=== PATIENT | female | born 1925 | race Caucasian/White ===

== ENCOUNTER 2016-12-26 09:00 | Outpatient (CLI) | payer MEDICARE ==
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
== END 2016-12-26 09:01 | disposition home or self-care (01) ==
LOC: PC 09:00
PROVIDERS: ATTEND Nurse Practitioner
DX: Z51.5 Encounter for palliative care (principal); F01.51 Vascular dementia, unspecified severity, with behavioral disturbance; R62.7 Adult failure to thrive; R63.4 Abnormal weight loss; I10 Essential (primary) hypertension; G62.9 Polyneuropathy, unspecified; I50.9 Heart failure, unspecified; I25.10 Atherosclerotic heart disease of native coronary artery without angina pectoris; R53.1 Weakness; K59.00 Constipation, unspecified; Z79.82 Long term (current) use of aspirin; R15.9 Full incontinence of feces; R32 Unspecified urinary incontinence; R63.0 Anorexia; Z66 Do not resuscitate

== ENCOUNTER 2017-03-11 14:02 | Outpatient (CLI) | payer MEDICARE ==
--- NOTE | 2017-03-11 15:35 | CONSULTATION NOTE ---
Palliative Care Follow Up - Referral Referring Provider: Rin Matias PA-C Time of Visit: 03/12/2017 10:25 Referral setting: Assisted living (Patient is seen in her home setting, which is [facility] dementia unit, due to taxing and considerable effort required to leave the facility secondary to advanced dementia, significant lower extremity weakness and inability to bear weight. It is also necessary to have access to the facility documents.) - Information Sources Records reviewed: RN notes reviewed, Previous records reviewed History/Review of Systems obtained from: Family, Nursing Exam limitations: Clinical condition (Advanced dementia, extremely hard of hearing) - History of Present Illness Update Brief HPI Update: This is a frail 89-year-old female with advanced vascular dementia and a history of CHF, CAD, PAD, HTN, HLD, and nondiabetic peripheral neuropathy. She recently was discharged from hospice February 25 after she started improving with an increase in appetite, weight, and responsiveness. She can eat 80-100% of her meals. She does sit at the dining room table, however she requires staff help with feeding. She had started to lose weight earlier in February, however that has since they restarted one can of Ensure at each meal that turned around and she has been gaining weight again. Her current weight today is 120.2 pounds. She is still is quite frail, requiring 2 persons to assist for all transfers. She is non-ambulatory, and is wheelchair-bound. During today's visit and she was wrapped tightly in blankets to stay warm, was reclining in the common room, and though she had her eyes open at various times during the visit, she mostly kept her eyes shut. Her son reports she is significantly hard of hearing, and he needs to speak directly into her ear for her to understand, which might be part of her unresponsiveness. He states that she does not have a hearing aid, and he will think about possibly getting her fitted for some. He reports she does not recognize him, but is able to respond to certain statements, seems to a reacts to being called mom, and even commented about the "cute babies" when he was telling her a story about a family gathering over the holidays. Nursing reports that she is fairly stable, with no behavioral issues or adherence issues, and she is mostly cooperative though she doesn't like pericare. Social History - Living Situation Living arrangement: Assisted living ([facility]) Living Situation: With caregiver(s) Support System: Her son/DPOA, Ehsan Hernadez, lives locally in [place]. Her other three adult children all live in [facility]. She spent most of her life in [place] but is originally from [place]. Medications/Allergies - Medications Home Medications: Ambulatory Orders Medication Instructions Recorded Confirmed Bacitracin 1 gm OP PRN 12/26/16 Ensure Vanilla 1 ea PO TID 12/26/16 03/11/17 Furosemide 20 mg PO DAILY 12/26/16 03/11/17 Loperamide HCl [Loperamide] 4 mg PO DAILY PRN MDD 8 tabs 12/26/16 03/11/17 Magnesium Hydroxide [Milk of 30 ml PO DAILY PRN 12/26/16 03/11/17 Magnesia] Nitroglycerin [Nitrostat] 0.4 mg SL Q5MIN PRN MDD up to 3 12/26/16 03/11/17 doses Nystatin 1 ea TOP DAILY PRN 12/26/16 03/11/17 Potassium Chloride [Micro-K] 20 meq PO DAILY 12/26/16 03/11/17 Senna Plus, With Docusate 17.2 - 100 mg PO QPM 12/26/16 03/11/17 Acetaminophen 650 mg PO Q6H PRN MDD 3000mg 03/11/17 03/11/17 maximum Acetaminophen 650 mg RC Q6H PRN MDD 3000mg 03/11/17 03/11/17 maximum Bisacodyl Supp [Dulcolax Supp] 10 mg IL DAILY PRN 03/11/17 03/11/17 Hyoscyamine [Levsin] 0.125 mg SL Q4H PRN 03/11/17 03/11/17 LORazepam [Ativan] 0.5 mg PO Q6H PRN 03/11/17 03/11/17 Morphine Sulfate [Morphine Sulf 0.25 ml PO Q4H PRN 03/11/17 03/11/17 Oral (Roxanol)] Na Phos,M-B/Na Phos,Di-Ba [Enema] 133 ml IL DAILY PRN 03/11/17 03/11/17 Sennosides/Docusate Sodium 1 ea PO BID PRN 03/11/17 03/11/17 [Senna-Docusate Sodium Tablet] - Allergies Allergies/Adverse Reactions: Allergies Allergy/AdvReac Type Severity Reaction Status Date / Time acetaminophen AdvReac Unknown Unknown Unverified 12/26/16 21:33 [From Darvocet-N] codeine AdvReac Unknown Unknown Unverified 12/26/16 21:33 propoxyphene AdvReac Unknown Unknown Unverified 12/26/16 21:33 [From Darvocet-N] sulfamethoxazole AdvReac Unknown Unknown Unverified 12/26/16 21:33 [From Bactrim] trimethoprim [From Bactrim] AdvReac Unknown Unknown Unverified 12/26/16 21:33 Review of Systems - Constitutional Constitutional: reports: Fatigue, Weakness, Weight loss (Weight loss, but is reboundin.2 lbs 03/11/2017. 116 lbs 03/04/17. 113.8 lbs 02/25/17. 120 lbs 02/18/17. 123 lbs 02/11/17.) - Ears, Nose & Throat Ears, Nose & Throat: reports: Hearing loss (significant). denies: Hearing aids - Cardiovascular Cardiovascular: denies: Edema - Respiratory Respiratory: denies: SOB at rest - Gastrointestinal Gastrointestinal: reports: Good appetite. denies: Constipation, Diarrhea, Change in bowel habits, Poor appetite - Genitourinary Genitourinary: reports: Incontinence - Neurological Neurological: reports: General weakness, Memory problems - Psychiatric Psychiatric: denies: Behavior disturbances - All Other Systems All Other Systems: reports: Other (Unable to obtain ROS from patient due to advanced dementia and significant deafness) Physical Exam - Vital Signs Temperature: 96.8 F Pulse Rate: 80 O2 Saturation: 95 Blood Pressure: 110/70 - Physical Exam General Appearance: positive: No acute distress, Other (Has eyes opened occasionally but closed much of the visit. She wakes up when her son speaks to her, but he has to shout right in her ear.) Eyes Bilateral: positive: EOMI, Conjunctivae nml, No scleral icterus, Other ( Minimal exudate L eye) ENT: positive: No signs of dehydration Neck: positive: No JVD, Trachea midline Cardiovascular: positive: Regular rate & rhythm, No murmur, No gallop Respiratory: positive: Diminished throughout, Other (minimal crackles/creaks on inspiration) Skin: positive: No symptoms, Dryness Extremities: positive: No pedal edema Neurologic/Psychiatric: positive: Sensation nml, Disoriented to person, Disoriented to place, Disoriented to time, Unintelligible speech (minimal verbalization), Flat affect Palliative Care - POLST POLST Status: DNR, Comfort Measures Pain: No pain, Comment (No complaints or indications of pain) Tiredness/Fatigue: Mild (1-3) (Kept her eyes closed during most of the visit) Drowsiness/Sedation: Mild (1-3) Nausea: None Anorexia: None (Has an appetite, was hungry during the visit and asked for food) Performance Status: Functional status: Requires 2 person assist with all transfers. Wheelchair for ambulations. Requires feeding by staff. Incontinent of bowel and bladder. Minimal verbalizations. Cooperative mostly. Must closely monitor appetite and intake, she loses weight easily. Now she is back drinking 1 can Ensure with each meal and her weight is rebounding. - Palliative Care Discussion: Son Rizwan lives nearby and visits her regularly. She came off Hospice in February because she started eating and gaining weight. Rizwan understands that she is still frail, but is just happy to have her still here. He is in agreement to have Palliative Care monitor her status. The goal of care continues to be comfort care and maximizing quality of life. When the patient meets criteria again for Hospice he is agreeable to transition her back to Hospice when appropriate. Impression and Recommendations - Palliative Care Impression: This is a frail 89-year-old woman who has been recently discharged from hospice after having regained her appetite, increased her weight and her responsiveness. The family agrees to having palliative care oversight to monitor her status and progress, and eventually transition her back to hospice when appropriate. Recommendations/Counseling Done: #1 vascular dementia: Stable, continue supportive care. #2 Constipation: Stable on senna daily and PRN. #3 Weight loss: Improved after restarting Ensure at each meal, current weight is 120.2 pounds. Continue to monitor. Continue staff assisting with eating at each meal. #4 neuropathy: Stable, not currently on medication. Gabapentin had been previously discontinued for having a no comfort benefits. #5 advanced care planning: POLST is DO NOT RESUSCITATE and comfort care, palliative care will continue to oversee and monitor for transition back to hospice when appropriate. Time Spent: 25 minutes were spent with more than 50% of the time spent on counseling, education, and coordination of care, including medication reconciliation.
== END 2017-03-11 14:03 | disposition home or self-care (01) ==
LOC: PC 14:02
PROVIDERS: ATTEND Nurse Practitioner
DX: Z51.5 Encounter for palliative care (principal); F01.50 Vascular dementia, unspecified severity, without behavioral disturbance, psychotic disturbance, mood disturbance, and anxiety; K59.00 Constipation, unspecified; G62.9 Polyneuropathy, unspecified; I50.9 Heart failure, unspecified; I10 Essential (primary) hypertension; M62.81 Muscle weakness (generalized); Z66 Do not resuscitate